=== PATIENT | female | born 1965 | race Caucasian/White ===

== ENCOUNTER 2024-02-19 10:21 | Emergency (ER) | payer OTHER, MEDICAID, SELFPAY ==
[2024-02-19] VITALS (36 sets, daily range): BP systolic 99–191; BP diastolic 56–114; PULSE 80–113; RESP 11–30; TEMP 36.6; O2SAT 91–100
--- NOTE | 2024-02-19 10:34 | DI.RAD.S_ITS ---
PROCEDURE: XR CHEST 1V INDICATIONS: suspected sepsis TECHNIQUE: One view of the chest was acquired. COMPARISON: None. FINDINGS: Surgical changes and devices: None. Lungs and pleura: Lungs are clear. Mild biapical predominant interstitial change. A No pleural effusions or pneumothorax. Mediastinum: Mediastinal contours appear normal. Heart size is normal. Bones and chest wall: No suspicious bony lesions. Overlying soft tissues appear unremarkable. IMPRESSION: No acute cardiopulmonary abnormality is seen. Dictated by: Murray Yu M.D. on 02/19/2024 at 11:37 Approved by: Murray Yu M.D. on 02/19/2024 at 11:42
--- NOTE | 2024-02-19 11:05 | EKG_ITS ---
[address] [address] Test Date: 2024-02-19 Pat Name: Cecy Patel Department: Room: Gender: Female [employer]: DOUG : 1965 Requested By: Order Number: [id number] Reading MD: David Saxena Measurements Intervals [place] Rate: 99 P: 55 [place]: 172 QRS: 18 QRSD: 74 T: 49 QT: 340 QTc: 436 Interpretive Statements Normal sinus rhythm Cannot rule out Anterior infarct , age undetermined Electronically Signed On 02-19-2024 14:29:38 PDT by David Saxena
[2024-02-19] MEDS: SODIUM CHLORIDE 0.9% 1,000 ML 1000 ML IV ×2 (11:49→14:37)
[2024-02-19 11:53] LABS: Prothrombin Time 10.9 SECONDS (9.4-12.5)
[2024-02-19 11:56] LABS: PTT Partial Thromboplastin Tim 35 SECONDS (25.1-36.5)
[2024-02-19 11:58] LABS: Lactate (Lactic Acid) 1.1 mmol/L (0.7-2.1)
[2024-02-19 12:00] LABS: Alanine Aminotransferase 17 IU/L (<35); Albumin 4.2 g/dL (3.5-5.0); Albumin Globulin Ratio 1.4 (1.0-2.8); Alkaline Phosphatase 101 U/L (38-126); Aspartate Aminotransferase 18 IU/L (14-36); Bilirubin Total 0.6 mg/dL (0.2-1.3); Blood Urea Nitrogen 21 mg/dL (7-17); Calcium 10.2 mg/dL (8.4-10.2); Carbon Dioxide 27 mmol/L (22-32); Chloride 99 mmol/L (98-107); Estimated Glomerular Filt Rate > 60 mL/min (>60); Glucose 332 mg/dL (70-100); HEMOLYSIS < 15 (0-50); Lipase 49 U/L (23-300); Potassium 4.3 mmol/L (3.4-5.1); Sodium 132 mmol/L (137-145); Total Protein 7.2 g/dL (6.3-8.2)
[2024-02-19 12:13] LABS: Add Manual Diff / Slide Review NO; Basophils Absolute Auto 0 /uL (0-100); Basophils Percent Auto 0.4 % (0-2); Eosinophils Absolute Auto 200 /uL (0-450); Eosinophils Percent Auto 3.1 % (2-4); Hemoglobin 14.3 g/dL (12.0-16.0); Lymphocytes Absolute Auto 2800 /uL (1100-4500); Mean Corpuscular HGB Conc 34.8 % (30-36); Mean Corpuscular Hemoglobin 30.6 PG (26-34); Mean Corpuscular Volume 87.9 fL (80-100); Monocytes Absolute Auto 500 /uL (0-900); Monocytes Percent Auto 6.3 % (3-14); Neutrophils Absolute Auto 3900 /uL (1500-7000); Neutrophils Percent Auto 52.2 % (50-75); Platelet Count 241 X10^3/uL (150-400); Red Blood Cell Count 4.66 X10^6/uL (4.0-5.2); Red Cell Distribution Width 13.1 % (11.6-14.8); White Blood Cell Count 7.5 X10^3/uL (4.5-11.0)
[2024-02-19 12:16] LABS: Procalcitonin < 0.030 ng/mL (<0.5)
--- NOTE | 2024-02-19 13:28 | ED_ITS ---
HPI - Weakness General Chief complaint: Weakness Stated complaint: nausea, poss high blood sugar, abd pain t-5 Time Seen by Provider: 02/19/24 13:28 Source: patient Mode of arrival: Wheelchair History of Present Illness HPI Narrative: 58-year-old female with history of diabetes complains generalized weakness for the last few days, recent couple of days of cough nonproductive, generalized abdominal discomfort, some retching without emesis, no loose stools. No black or red stools. Does not recall diagnosis of diabetic gastroparesis. No injury trauma activities. She does not have pain with urination. She has not have headache or neck pain or photophobia. She denies chest discomfort and shortness of breath. Related Data Previous Rx's Medication Instructions Recorded metoclopramide HCl 10 mg tablet 10 mg PO Q6H PRN nausea and 02/19/24 (Reglan) vomiting #60 tabs Allergies Allergy/AdvReac Type Severity Reaction Status Date / Time amoxicillin Allergy Verified 02/19/24 11:49 latex Allergy Verified 02/19/24 11:49 Penicillins Allergy Verified 02/19/24 11:49 Sulfa (Sulfonamide Allergy Verified 02/19/24 11:49 Antibiotics) Review of Systems Review of Systems Narrative: see HPI Patient History Social History Smoking Status: Unknown if ever smoked Smoking Status: Unknown if ever smoked alcohol intake frequency: other Substance Use Type: does not use Exam Narrative Exam Narrative: GENERAL: Well-developed patient, in mild distress. HEAD: Atraumatic. Normocephalic. EYES: Pupils equal round and reactive. Extraocular motions intact. No scleral icterus. No injection or drainage. ENT: Nose without bleeding, purulent drainage. Throat without erythema, tonsillar hypertrophy or exudate. Airway patent. NECK: Trachea midline. Non tender CARDIOVASCULAR: Regular rate and rhythm without murmurs, gallops, or rubs. RESPIRATORY: Clear to auscultation. Breath sounds equal bilaterally. No wheezes, rales, or rhonchi. GASTROINTESTINAL: Abdomen soft, non-tender, nondistended. EXTREMITIES: No edema or joint tenderness. BACK: Nontender without deformity or crepitance. No flank tenderness. NEURO: AOx3. SKIN: No rash or erythema of visible areas Initial Vital Signs Initial Vital Signs: Vital Signs Temperature 98 F 02/19/24 10:34 Pulse Rate 113 H 02/19/24 10:34 Respiratory Rate 17 02/19/24 10:34 Blood Pressure 99/56 L 02/19/24 10:34 Pulse Oximetry 99 02/19/24 10:34 Oxygen Delivery Method Room Air 02/19/24 10:34 Course Orders Ordered: ED Orders 02/19/24 11:10 Complete Blood Count AUTO DIFF Stat Comprehensive Metabolic Panel Stat Lactate (Lactic Acid) Stat Lipase Stat PTT Partial Thromboplastin Yvan Stat Procalcitonin Stat Prothrombin Time INR Stat 02/19/24 11:36 Blood Culture Stat 02/19/24 14:05 CT abdomen pelvis w con Stat 02/19/24 14:18 Urinalysis and Microscopic Stat 02/19/24 15:20 Respiratory Panel (Film Array) Stat 02/19/24 15:33 US abdomen limited Stat Discontinued Medications Diphenhydramine HCl (Diphenhydramine 50 Mg/Ml Vial) 25 mg IV NOW ONE Stop: 02/19/24 14:08 Last Admin: 02/19/24 14:38 Dose: 25 mg Documented By: RB Famotidine (Famotidine 20 Mg/2 Ml Vial) 20 mg IV NOW DANIELA Last Admin: 02/19/24 14:37 Dose: 20 mg Documented By: RB Sodium Chloride (Normal Saline 0.9%) 1,000 mls @ 1,000 mls/hr IV BOLUS ONE Stop: 02/19/24 11:32 Last Infusion: 02/19/24 13:14 Dose: Infused Documented By: [facility] Admin: 02/19/24 11:49 Dose: 1,000 mls/hr Documented By: BS Sodium Chloride (Normal Saline 0.9%) 1,000 mls @ 1,000 mls/hr IV BOLUS ONE Stop: 02/19/24 15:07 Last Infusion: 02/19/24 16:18 Dose: Infused Documented By: Admin: 02/19/24 14:37 Dose: 1,000 mls/hr Documented By: RB Insulin Human Regular (Insulin Regular 100 Unit/Ml 3 Ml Vial) 5 unit SUBCUT NOW ONE Stop: 02/19/24 14:10 Last Admin: 02/19/24 14:36 Dose: 5 unit Documented By: HERNESTO Co-signed By: LUMA Metoclopramide HCl (Metoclopramide 10 Mg/2 Ml Inj) 10 mg IV NOW ONE Stop: 02/19/24 14:08 Last Admin: 02/19/24 14:38 Dose: 10 mg Documented By: RB Ondansetron HCl (Ondansetron 4 Mg/2 Ml Inj) 4 mg IV NOW PRN PRN Reason: Nausea And Vomiting Last Admin: 02/19/24 14:38 Dose: 4 mg Documented By: RB Ondansetron HCl (Ondansetron 4 Mg Odt) 4 mg SL NOW PRN PRN Reason: Nausea And Vomiting Vital Signs Vital signs: Vital Signs - 8 hr 02/19/24 12:15 02/19/24 12:15 02/19/24 12:30 Pulse Rate 91 H 91 H Respiratory Rate 15 12 Blood Pressure 145/99 H Pulse Oximetry 99 99 Oxygen Delivery Method 02/19/24 12:30 02/19/24 12:45 02/19/24 12:45 Pulse Rate 92 H Respiratory Rate 23 Blood Pressure 151/104 H 161/114 H Pulse Oximetry 100 Oxygen Delivery Method 02/19/24 13:00 02/19/24 13:00 02/19/24 13:24 Pulse Rate 87 89 Respiratory Rate 19 16 Blood Pressure 164/113 H Pulse Oximetry 99 98 Oxygen Delivery Method 02/19/24 13:24 02/19/24 13:30 02/19/24 13:30 Pulse Rate 82 Respiratory Rate 18 Blood Pressure 157/77 H 139/77 Pulse Oximetry 98 Oxygen Delivery Method 02/19/24 13:46 02/19/24 13:46 02/19/24 14:00 Pulse Rate 94 H 90 Respiratory Rate 18 23 Blood Pressure 151/98 H Pulse Oximetry 99 99 Oxygen Delivery Method 02/19/24 14:00 02/19/24 14:21 02/19/24 14:21 Pulse Rate 80 Respiratory Rate 11 L Blood Pressure 154/108 H 179/104 H Pulse Oximetry 98 Oxygen Delivery Method 02/19/24 14:30 02/19/24 14:30 02/19/24 14:45 Pulse Rate 81 Respiratory Rate 11 L Blood Pressure 172/109 H 166/103 H Pulse Oximetry 97 Oxygen Delivery Method 02/19/24 14:45 02/19/24 15:00 02/19/24 15:00 Pulse Rate 81 83 Respiratory Rate 15 19 Blood Pressure 166/108 H Pulse Oximetry 99 99 Oxygen Delivery Method 02/19/24 15:30 02/19/24 15:38 02/19/24 15:38 Pulse Rate 93 H 92 H Respiratory Rate 25 H 12 Blood Pressure 146/102 H Pulse Oximetry 99 99 Oxygen Delivery Method 02/19/24 15:46 02/19/24 15:46 02/19/24 16:00 Pulse Rate 93 H 88 Respiratory Rate 30 H 20 Blood Pressure 149/91 H Pulse Oximetry 99 99 Oxygen Delivery Method 02/19/24 16:01 02/19/24 16:01 02/19/24 16:15 Pulse Rate 89 Respiratory Rate 25 H Blood Pressure 160/89 H 163/85 H Pulse Oximetry 99 Oxygen Delivery Method 02/19/24 16:15 02/19/24 16:30 02/19/24 16:31 Pulse Rate 89 91 H 83 Respiratory Rate 14 Blood Pressure Pulse Oximetry 98 91 100 Oxygen Delivery Method 02/19/24 16:31 02/19/24 16:45 02/19/24 16:45 Pulse Rate 88 Respiratory Rate 17 Blood Pressure 179/106 H 169/102 H Pulse Oximetry 99 Oxygen Delivery Method 02/19/24 17:00 02/19/24 17:00 02/19/24 17:15 Pulse Rate 85 95 H Respiratory Rate 12 17 Blood Pressure 155/96 H Pulse Oximetry 99 Oxygen Delivery Method 02/19/24 17:15 02/19/24 17:23 02/19/24 17:23 Pulse Rate 84 Respiratory Rate 17 Blood Pressure 123/89 191/99 H Pulse Oximetry 98 Oxygen Delivery Method 02/19/24 17:30 02/19/24 17:30 02/19/24 17:45 Pulse Rate 86 87 Respiratory Rate 18 17 Blood Pressure 169/95 H Pulse Oximetry 99 99 Oxygen Delivery Method 02/19/24 17:45 02/19/24 18:00 02/19/24 18:00 Pulse Rate 87 Respiratory Rate 17 Blood Pressure 151/94 H 154/93 H Pulse Oximetry 97 Oxygen Delivery Method 02/19/24 18:15 02/19/24 18:15 02/19/24 18:30 Pulse Rate 91 H 89 Respiratory Rate 19 17 Blood Pressure 155/93 H Pulse Oximetry 97 97 Oxygen Delivery Method 02/19/24 18:30 02/19/24 18:45 02/19/24 18:45 Pulse Rate 91 H Respiratory Rate 19 Blood Pressure 154/85 H 146/85 H Pulse Oximetry 97 Oxygen Delivery Method 02/19/24 19:00 02/19/24 19:00 Pulse Rate 88 Respiratory Rate 15 Blood Pressure 146/94 H Pulse Oximetry 99 Oxygen Delivery Method Room Air MDM - Weakness Lab Data Attestation: I reviewed the patient's lab results. 02/19/24 11:10 02/19/24 11:10 Labs: Lab Results 02/19/24 02/19/24 Range/Units 11:10 15:20 WBC 7.5 (4.5-11.0) X10^3/uL RBC 4.66 (4.0-5.2) X10^6/uL Hgb 14.3 (12.0-16.0) g/dL Hct 41.0 (36-46) % MCV 87.9 (80-100) fL MCH 30.6 (26-34) PG MCHC 34.8 (30-36) % RDW 13.1 (11.6-14.8) % Plt Count 241 (150-400) X10^3/uL Neut % (Auto) 52.2 (50-75) % Lymph % (Auto) 38.0 (25-40) % [place] % (Auto) 6.3 (3-14) % Eos % (Auto) 3.1 (2-4) % Baso % (Auto) 0.4 (0-2) % Neut # (Auto) 3900 (7434-1253) /uL Lymph # (Auto) 2800 (2091-6192) /uL [place] # (Auto) 500 (0-900) /uL Eos # (Auto) 200 (0-450) /uL Baso # (Auto) 0 (0-100) /uL PT 10.9 (9.4-12.5) SECONDS INR 1.0 (0.9-1.3) APTT 35 (25.1-36.5) SECONDS Sodium 132 L (137-145) mmol/L Potassium 4.3 (3.4-5.1) mmol/L Chloride 99 (98-107) mmol/L Carbon Dioxide 27 (22-32) mmol/L BUN 21 H (7-17) mg/dL Creatinine 0.50 L (0.52-1.04) mg/dL Estimated GFR > 60 (>60) mL/min BUN/Creatinine Ratio 42.0 H (6-22) Glucose 332 H (70-100) mg/dL Lactate 1.1 (0.7-2.1) mmol/L Calcium 10.2 (8.4-10.2) mg/dL Total Bilirubin 0.6 (0.2-1.3) mg/dL AST 18 (14-36) IU/L ALT 17 (<35) IU/L Alkaline Phosphatase 101 (38-126) U/L Total Protein 7.2 (6.3-8.2) g/dL Albumin 4.2 (3.5-5.0) g/dL Globulin 3.0 (1.7-4.1) g/dL Albumin/Globulin Ratio 1.4 (1.0-2.8) Lipase 49 (23-300) U/L Procalcitonin < 0.030 (<0.5) ng/mL Chlamy pneumoniae PCR Not detected (Not Detect) Adenovirus (PCR) Not detected (Not Detect) B.parapertussis DNA PCR Not detected (Not Detecte) Coronavirus OC43 (PCR) Not detected (Not Detect) Coronavirus HKU1 (PCR) Not detected (Not Detect) Coronavirus 229E (PCR) Not detected (Not Detect) SARS-CoV-2 (PCR) Not detected (Not Detecte) Coronavirus NL63 (PCR) Not detected (Not Detect) Human Metapneumovir PCR Not detected (Not Detect) Influenza Type A (PCR) Not detected (Not Detect) Influenza Type B (PCR) Not detected (Not Detect) M. pneumoniae (PCR) Not detected (Not Detect) Parainfluenza 1 (PCR) Not detected (Not Detect) Parainfluenza 2 (PCR) Not detected (Not Detect) Parainfluenza 3 (PCR) Not detected (Not Detect) Parainfluenza 4 (PCR) Not detected (Not Detect) RSV (PCR) Not detected (Not Detect) Entero/Rhino (PCR) Not detected (Not Detect) Point of Care Testing Glucose POC 160 Urine Dip Bedside Urine Glucose 1000 mg/dl Bedside Urine Bilirubin - Negative Bedside Urine Ketone +/- 5 Urine Specific [place] 1.015 Bedside Urine Occult Blood - Negative Bedside Urine pH 6.0 Bedside Urine Protein - Negative Bedside Urine Urobilinogen - Negative Bedside Urine Nitrite - Negative Bedside Urine Leukocytes - Negative Esterase Imaging Data Chest x-ray: Radiologist Impression: [address] [address] XRay Report Signed Patient: Cecy Patel MR#: [id number] : 1965 Acct:[id number] Age/Sex: 58 / F Date of Service: 02/19/24 Loc: ED Accession Number: [id number] Procedure: XR chest 1V Ordering Provider: Mj Varner MD PROCEDURE: XR CHEST 1V INDICATIONS: suspected sepsis TECHNIQUE: One view of the chest was acquired. COMPARISON: None. FINDINGS: Surgical changes and devices: None. Lungs and pleura: Lungs are clear. Mild biapical predominant interstitial change. A No pleural effusions or pneumothorax. Mediastinum: Mediastinal contours appear normal. Heart size is normal. Bones and chest wall: No suspicious bony lesions. Overlying soft tissues appear unremarkable. IMPRESSION: No acute cardiopulmonary abnormality is seen. Dictated by: Murray Yu M.D. on 02/19/2024 at 11:37 Approved by: Murray Yu M.D. on 02/19/2024 at 11:42 CT scan - abdomen/pelvis: Radiologist Impression: Close Abdomen/Pelvis CT (Signed) Akhil Duvall - 02/19/24 Chest X-Ray (Signed) Murray Yu - 02/19/24 Launch?Image [address] [address] [address] Scan Report Signed Patient: Cecy Patel MR#: [id number] : 1965 Acct:[id number] Age/Sex: 58 / F Date of Service: 02/19/24 Loc: ED Accession Number: [id number] Procedure: CT abdomen pelvis w con Ordering Provider: Mj Varner MD PROCEDURE: CT ABDOMEN PELVIS W CON INDICATIONS: abd pain generalized TECHNIQUE: After the administration of intravenous contrast, axial sections acquired from the lung bases to the pubic symphysis. Coronal and sagittal reformats were performed. For radiation dose reduction, the following was used: automated exposure control, adjustment of mA and/or kV according to patient size. COMPARISON: None. FINDINGS: Image quality: Diagnostic. Lower Chest: No significant findings. ABDOMEN: Liver: No solid mass. Gallbladder: Mild wall thickening of the gallbladder, without distension or radiopaque stones. Biliary ducts: No biliary dilation. Pancreas: No ductal dilation. Spleen: Size is within normal limits. Adrenal Glands: No adrenal nodules. Kidneys and Ureters: No hydronephrosis. No solid mass. No complex renal cystic lesion which requires follow up. Stomach and Bowel: Normal colonic caliber, without significant wall thickening. Colonic diverticulosis without evidence of diverticulitis. Normal appendix. Peritoneum: No abnormal intraperitoneal fluid. No free air. Ventral Wall: No significant ventral hernia. Abdominal Nodes: No retroperitoneal or mesenteric adenopathy by size criteria. Vessels: Aorta and inferior vena cava are normal in size. PELVIS: Pelvic Organs: Unremarkable. Bladder: No bladder wall thickening, accounting for underdistention. Pelvic Nodes: No enlarged lymph nodes. Miscellaneous: No inguinal hernias are seen. Bones: No aggressive osseous abnormality. Mild bilateral sacroiliitis, probably degenerative. Degenerative disc disease of the lumbar spine. IMPRESSION: Mild wall thickening of the gallbladder, without radiopaque gallstones. Correlate with right upper quadrant pain and consider sonographic evaluation to further evaluate for stones. Dictated by: Akhil Duvall M.D. on 02/19/2024 at 14:43 Approved by: Akhil Duvall M.D. on 02/19/2024 at 14:45 Ultrasound right upper quadrant: Radiologist Impression: [address] [address] Ultrasound Report Signed Patient: Cecy Patel MR#: [id number] : 1965 Acct:[id number] Age/Sex: 58 / F Date of Service: 02/19/24 Loc: ED Accession Number: [id number] Procedure: US abdomen limited Ordering Provider: Mj Varner MD PROCEDURE: US ABDOMEN LIMITED INDICATIONS: Right upper quadrant abdomen, gallbladder concerns on CT TECHNIQUE: Real-time scanning was performed of the abdominal and retroperitoneal organs, with image documentation. COMPARISON: [facility], CT, CT ABDOMEN PELVIS W CON, 02/19/2024, 14:11. FINDINGS: Liver: Liver is enlarged measuring 19 cm without focal lesion. Gallbladder: Mobile foci of echogenicity are identified. No wall thickening. No pericholecystic edema. Negative sonographic Cowan's sign. Biliary ducts: Intrahepatic bile ducts are non-dilated. Extrahepatic bile duct caliber measures 5.6 mm. Normal is 6-7 mm or less in diameter, or 10 mm or less post-cholecystectomy. Pancreas: Visualized portions of the pancreas are sonographically normal. Miscellaneous: No free abdominal fluid. IMPRESSION: Cholelithiasis without imaging appearance of cholecystitis. Dictated by: Elaine Murcia M.D. on 02/19/2024 at 17:46 Approved by: Elaine Murcia M.D. on 02/19/2024 at 17:49 ECG Data Attestation: I personally reviewed and interpreted this ECG as follows: Interpretation: Normal sinus rhythm with rate of 99, no obvious ST segment elevation or depression changes. ID 172, QRS 74, QTC 436. MDM Narrative Medical decision making narrative: 58-year-old female with history of diabetes, complains of few days' duration generalized weakness, central abdominal discomfort, nausea and retching without emesis, afebrile, sirs screen negative, abdomen soft nondistended. Patient does not recall history of gastroparesis. DDx consider diabetic gastroparesis, DKA, gastritis, peptic ulcer, biliary colic, gastroesophageal reflux, UTI, colitis, diverticulitis, bowel obstruction, lower lobe pneumonia, COVID, other respiratory illness, public services librarian etiology, ACS, dissection, other. EKG without obvious ischemic changes, normal sinus rhythm. Chest x-ray negative. Labs pending. Labs show elevated glucose 330, normal anion gap. IV fluid bolus. Potassium normal, subcutaneous regular human insulin. Persisting abdominal pain. IV Pepcid. GFR favorable. CT abdomen and pelvis ordered. CT abdomen and pelvis shows some gallbladder wall thickening without stones, no mentioned in called bile duct dilatation, no other acute changes. Consider ultrasound. Patient would prefer imaging. Right upper quadrant ultrasound requested. Ultrasound right upper quadrant shows cholelithiasis without cholecystitis changes. P.o. fluids child tolerated well. Discharged home. Prescription for Reglan to try if she would like, if there is a component of her symptoms might be diabetic gastroparesis, sent to her pharmacy. Return precautions discussed. Improved, home with family. Critical Care Time Critical Care Time Critical Care Time: Yes Total Critical Care Time: 31 Attestation: The high probability of a clinically significant, sudden or life threatening deterioration of the [gastrointestinal, cardiopulmonary, genitourinary, abdominopelvic] system(s) required my full and direct attention, intervention and personal management. The aggregate critical care time was [31] minutes. This time is in addition to time spent performing reported procedures but includes the following: [x] Data Review and interpretation [x] Patient assessment and monitoring of vital signs [x] Documentation [x] Medication orders and management Discharge Plan Departure Patient Disposition: Home Clinical Impression: Abdominal pain, Hyperglycemia, Cholelithiasis, History of diabetes mellitus Instructions: DI for Abdominal Pain-Adult Activity Restrictions/Additional Instructions: History of diabetes, abdominal discomfort, persisting symptoms despite symptomatic treatment. Elevated blood glucose, fluids in insulin given, glucose decreased. Persisting symptoms scanning chest abdomen and pelvis showed no acute process, but some thickening of the gallbladder with recommendation for ultrasound imaging. Ultrasound right upper quadrant showed the presence of gallstones but no inflammatory changes of the gallbladder at this time. Your symptoms were improved with antinausea medication. Consider component of symptoms due to diabetic gastroparesis, sometimes Reglan medication can be helpful for this. Reglan sent to your pharmacy if you want to try this medication. Recheck symptoms with your regular provider in the next couple of days. Return to this/nearest emergency department for any change worsening symptoms or any concerns prior Prescriptions: New metoclopramide HCl [Reglan] 10 mg tablet 10 mg PO Q6H PRN (Reason: nausea and vomiting) Qty: 60 0RF Stand Alone Forms: Patient Portal/API
--- NOTE | 2024-02-19 14:05 | DI.CT.S_ITS ---
PROCEDURE: CT ABDOMEN PELVIS W CON INDICATIONS: abd pain generalized TECHNIQUE: After the administration of intravenous contrast, axial sections acquired from the lung bases to the pubic symphysis. Coronal and sagittal reformats were performed. For radiation dose reduction, the following was used: automated exposure control, adjustment of mA and/or kV according to patient size. COMPARISON: None. FINDINGS: Image quality: Diagnostic. Lower Chest: No significant findings. ABDOMEN: Liver: No solid mass. Gallbladder: Mild wall thickening of the gallbladder, without distension or radiopaque stones. Biliary ducts: No biliary dilation. Pancreas: No ductal dilation. Spleen: Size is within normal limits. Adrenal Glands: No adrenal nodules. Kidneys and Ureters: No hydronephrosis. No solid mass. No complex renal cystic lesion which requires follow up. Stomach and Bowel: Normal colonic caliber, without significant wall thickening. Colonic diverticulosis without evidence of diverticulitis. Normal appendix. Peritoneum: No abnormal intraperitoneal fluid. No free air. Ventral Wall: No significant ventral hernia. Abdominal Nodes: No retroperitoneal or mesenteric adenopathy by size criteria. Vessels: Aorta and inferior vena cava are normal in size. PELVIS: Pelvic Organs: Unremarkable. Bladder: No bladder wall thickening, accounting for underdistention. Pelvic Nodes: No enlarged lymph nodes. Miscellaneous: No inguinal hernias are seen. Bones: No aggressive osseous abnormality. Mild bilateral sacroiliitis, probably degenerative. Degenerative disc disease of the lumbar spine. IMPRESSION: Mild wall thickening of the gallbladder, without radiopaque gallstones. Correlate with right upper quadrant pain and consider sonographic evaluation to further evaluate for stones. Dictated by: Akhil Duvall M.D. on 02/19/2024 at 14:43 Approved by: Akhil Duvall M.D. on 02/19/2024 at 14:45
[2024-02-19] MEDS: INSULIN REGULAR 100 UNIT/ML 3 ML VIAL SUBCUT (14:36)
[2024-02-19] MEDS: FAMOTIDINE 20 MG/2 ML VIAL IV (14:37)
[2024-02-19] MEDS: METOCLOPRAMIDE 10 MG/2 ML INJ IV (14:38)
[2024-02-19] MEDS: ONDANSETRON 4 MG/2 ML INJ IV (14:38)
[2024-02-19] MEDS: diphenhydrAMINE 50 MG/ML VIAL 25 MG IV (14:38)
--- NOTE | 2024-02-19 15:33 | DI.US.S_ITS ---
PROCEDURE: US ABDOMEN LIMITED INDICATIONS: Right upper quadrant abdomen, gallbladder concerns on CT TECHNIQUE: Real-time scanning was performed of the abdominal and retroperitoneal organs, with image documentation. COMPARISON: [facility], CT, CT ABDOMEN PELVIS W CON, 02/19/2024, 14:11. FINDINGS: Liver: Liver is enlarged measuring 19 cm without focal lesion. Gallbladder: Mobile foci of echogenicity are identified. No wall thickening. No pericholecystic edema. Negative sonographic Cowan's sign. Biliary ducts: Intrahepatic bile ducts are non-dilated. Extrahepatic bile duct caliber measures 5.6 mm. Normal is 6-7 mm or less in diameter, or 10 mm or less post-cholecystectomy. Pancreas: Visualized portions of the pancreas are sonographically normal. Miscellaneous: No free abdominal fluid. IMPRESSION: Cholelithiasis without imaging appearance of cholecystitis. Dictated by: Elaine Murcia M.D. on 02/19/2024 at 17:46 Approved by: Elaine Murcia M.D. on 02/19/2024 at 17:49
[2024-02-19 16:18] LABS: Adenovirus Not Detected (Not Detect); B. parapertussis Not Detected (Not Detecte); Bordetella pertussis Not Detected (Not Detect); Chlamydophila pneumoniae Not Detected (Not Detect); Coronavirus 229E Not Detected (Not Detect); Coronavirus HKU1 Not Detected (Not Detect); Coronavirus NL 63 Not Detected (Not Detect); Coronavirus OC43 Not Detected (Not Detect); Human Metapneumovirus Not Detected (Not Detect); Human Rhinovirus/Enterovirus Not Detected (Not Detect); Influenza A Not Detected (Not Detect); Influenza B Not Detected (Not Detect); Mycoplasma pneumoniae Not Detected (Not Detect); Parainfluenza Virus 1 Not Detected (Not Detect); Parainfluenza Virus 2 Not Detected (Not Detect); Parainfluenza Virus 3 Not Detected (Not Detect); Parainfluenza Virus 4 Not Detected (Not Detect); Respiratory Syncytial Virus Not Detected (Not Detect); SARS- CoV-2 Not Detected (Not Detecte)
== END 2024-02-19 19:57 | disposition home or self-care (01) ==
PROVIDERS: Emergency Provider Emergency Medicine
DX: K80.20 Calculus of gallbladder without cholecystitis without obstruction (principal); E11.65 Type 2 diabetes mellitus with hyperglycemia; R10.11 Right upper quadrant pain; Z11.52 Encounter for screening for COVID-19
CPT/HCPCS: 36415; 71045; 74177; 76705; 80053; 81003; 82962; 83605; 83690; 84145; 85025; 85610; 85730; 87040; 87633; 93005; 96361; 96372; 96374; 96375; 99284; J1200; J2405; J2765; Q9967

== ENCOUNTER → 2024-03-12 16:58 | Outpatient (CLI) | payer OTHER, MEDICAID, SELFPAY ==
[2024-03-12 18:00] LABS: Cholesterol 165 mg/dL (140-199); HDL Cholesterol 62 mg/dL (40-60); LDL Cholesterol Calculated 74 mg/dL (<100); Triglycerides 147 mg/dL (35-150)
[2024-03-12 18:33] LABS: Creatinine Urine Random 37.15 mg/dL
[2024-03-12 18:45] LABS: Microalbumin Urine Random < 0.6 mg/dL (0-1.6)
== END ==
PROVIDERS: PCP Family Medicine; Referring Provider Family Medicine; Visit Provider Family Medicine
DX: E11.65 Type 2 diabetes mellitus with hyperglycemia (principal); Z79.4 Long term (current) use of insulin; E03.9 Hypothyroidism, unspecified
CPT/HCPCS: 36415; 80061; 82043; 82570; 83036; 84443

== ENCOUNTER → 2024-07-23 09:43 | Outpatient (CLI) | payer OTHER, SELFPAY ==
[2024-07-23 10:40] LABS: Hemoglobin A1C% w Est Avg Glu 10.6 % (4.0-6.0)
[2024-07-23 11:31] LABS: Hep C Virus Ab w/Reflex Quant NEGATIVE s/c (NEGATIVE)
[2024-07-23 11:33] LABS: TSH w/ Reflex to FT4 4.35 uIU/mL (0.47-4.68)
== END ==
PROVIDERS: PCP Family Medicine; Referring Provider Family Medicine; Visit Provider Family Medicine
DX: E11.65 Type 2 diabetes mellitus with hyperglycemia (principal); Z79.4 Long term (current) use of insulin; E03.9 Hypothyroidism, unspecified
CPT/HCPCS: 36415; 83036; 84443; 86803

== ENCOUNTER → 2025-02-05 10:42 | Outpatient (CLI) | payer OTHER, SELFPAY ==
[2025-02-05 12:11] LABS: Hemoglobin A1C% w Est Avg Glu 7.9 % (4.0-6.0)
[2025-02-05 12:25] LABS: Blood Urea Nitrogen 33 mg/dL (7-17); Calcium 9.8 mg/dL (8.4-10.2); Carbon Dioxide 25 mmol/L (22-32); Chloride 100 mmol/L (98-107); Estimated Glomerular Filt Rate > 60 mL/min (>60); Glucose 235 mg/dL (70-99); HEMOLYSIS 41 (0-50); Potassium 4.4 mmol/L (3.4-5.1); Sodium 136 mmol/L (137-145)
[2025-02-05 12:55] LABS: TSH w/ Reflex to FT4 5.35 uIU/mL (0.47-4.68)
[2025-02-05 13:20] LABS: Free T4, Direct Thyroxine 1.18 ng/dL (0.78-2.19)
== END ==
PROVIDERS: PCP Family Medicine; Referring Provider Family Medicine; Visit Provider Family Medicine
DX: E03.9 Hypothyroidism, unspecified (principal); E11.65 Type 2 diabetes mellitus with hyperglycemia; Z79.4 Long term (current) use of insulin; H53.2 Diplopia
CPT/HCPCS: 36415; 80048; 83036; 84439; 84443